=== PATIENT | male | born 1965 | race Caucasian/White ===

== ENCOUNTER 2016-07-20 05:19 | Day surgery (SDC) | payer BC ==
--- NOTE | 2016-07-25 13:29 | OR ---
ADMIT: 07/20/2016 RM/LOC: [facility] MR#: [id number] [address] [id number] AMAURY AGUILAR [address] [place] [address] Operative/Delivery Room Report SEX: M AGE: 50 : 1965 SURGERY DATE: 07/20/2016 SURGEON: Elie Sharpe MD ESCALATOR INSTALLER: Kerri Sawyer APRN. PREOPERATIVE DIAGNOSIS: Successful thoracic 7-8 spinal cord stimulator trial with request for implant. POSTOPERATIVE DIAGNOSIS: Successful thoracic 7-8 spinal cord stimulator trial with request for implant. PROCEDURE: Placement of thoracic spinal cord stimulator utilizing laminectomy and paddle lead insertion with tunneling to separate second site with intraoperative interrogation to ensure continuity of the lead. DESCRIPTION OF PROCEDURE: After gaining informed consent, the patient was taken to the operative theater, placed under general endotracheal anesthesia in supine position and turned prone on a Juan Diego table with all pressure points purposely padded prior to performing the procedure. He was prepped and draped in the usual sterile fashion. A time-out was utilized to ascertain the correct site and side of surgery as well as other pertinent patient historical information. Counts were obtained at the beginning and end of the case with no change betwixt 2. Antibiotics were given before 1 hour of incision. Fluoroscope was brought into the field and T12 was noted. This was then counted up to the thoracic 9 and near the top of the thoracic 9 pedicle. A hook marker was placed. Incision was then fashioned. This was taken down to the thoracodorsal fascia, subperiosteally dissecting that. At the thoracic 8 and 9 level, a hemilaminectomy was fashioned utilizing the drilling Kerrison punch rongeurs, revealing the epidural space and the thecal sac. Multiple glove changes were used throughout this procedure and the paddle was brought into the field. This was passed in the midline up covering the thoracic 7 and into thoracic 8, which were the areas stimulated during the trial. Once this was completed, attention was then turned to sewing this down utilizing the locking connectors and a retention loop. Once that was done, this was then tunneled down to separately-made incision in the left flank that was then taken down into the subcutaneous tissue. His adipose tissue was too deep to provide anchor points for the internal pulse generator as the depth would be too much to charge the internal pulse generator, so a more superficial pocket was created. Once this was completed, attention was turned to connection interrogation. Once this was done, everything was covered with vancomycin powder and the wounds were closed with simple and interrupted 2-0 Vicryl in the deep tissues; simple, inverted, and interrupted 2-0 Vicryl in the hypodermic tissue and subcuticular 3-0 Stratafix with Steri-Strips on the ADMIT: 07/20/2016 RM/LOC: [facility] MR#: [id number] [address] [place] [id number] AMAURY AGUILAR [address] [place] [address] Operative/Delivery Room Report SEX: M AGE: 50 : 1965 skin. Ms. Sawyer assisted with suction, retraction, and closure at the end of the case. COMPLICATIONS: None. ESTIMATED BLOOD LOSS: Charted. SPECIMEN: None. DISPOSITION: Extubated and taken to the Postanesthesia Care Unit. Elie Sharpe MD/ jaylene JOB #: [id number] CC: Elie Sharpe, Attending Physician Kailyn Alexander, Family Physician
== END 2016-07-20 11:10 | disposition home or self-care (01) ==
LOC: SSS 05:19
PROC: 00HU0MZ Insertion of Neurostimulator Lead into Spinal Canal, Open Approach (ICD-10-PCS; principal; 2016-07-20)
PROC: 0JH70BZ Insertion of Single Array Stimulator Generator into Back Subcutaneous Tissue and Fascia, Open Approach (ICD-10-PCS; principal; 2016-07-20)
DX: G89.29 Other chronic pain (principal); I10 Essential (primary) hypertension; G47.30 Sleep apnea, unspecified; E78.00 Pure hypercholesterolemia, unspecified; Z98.890 Other specified postprocedural states; Z87.891 Personal history of nicotine dependence; Z79.899 Other long term (current) drug therapy